=== PATIENT | female | born 1935 | race Caucasian/White ===

== ENCOUNTER 2017-09-03 11:15 | Emergency (ER) | payer MEDICARE, BC ==
[2017-09-03] MEDS ORDERED: Acetaminophen 325 MG TAB ONE (12:16)
--- NOTE | 2017-09-03 12:25 | CT ---
CT BRAIN WITHOUT CONTRAST: HISTORY: Pain. Fall. COMPARISON: None. FINDINGS: No acute territorial infarct or hemorrhage. No midline shift or mass effect. Moderate microvascula r ischemic changes. The calvarium is intact. The paranasal sinuses and mastoids are clear. The left orbital lens is radiolucent. IMPRESSION: Moderate microangiopathic changes without acute intracranial abnormality. POS: [facility]
[2017-09-03] MEDS ORDERED: Ondansetron ODT 4 MG TAB ONE (12:37)
--- NOTE | 2017-09-03 12:44 | CT ---
CT CERVICAL SPINE WITHOUT CONTRAST: HISTORY: Pain. Trauma. Fall. COMPARISON: None. FINDINGS: Bones are osteopenic. This limits evaluation for a nondisplaced fracture. The mastoids are clear. No displaced fracture of the cervical spine. Multilevel spondylosis. Moderate to severe emphysematous changes of lung apices, likely scarring in left lung apex. Dense vascular calcification of the aorta. Dense vascular calcifications of the great vessels. Thy roid is atrophic. IMPRESSION: 1. No acute fracture or malalignment of the cervical spine. 2. Extensive emphysema in lung apices with likely some peripherally calcified scarring left lung ap ex and less likely mass. Followup radiographs can be obtained. POS: [facility]
--- NOTE | 2017-09-03 12:49 | RAD ---
SACRUM AND COCCYX STANDARD: HISTORY: Pain. Fall. Trauma. COMPARISON: None. FINDINGS: SI joints appear to be preserved. Obturator rings appear to be preserved. No acute fracture is vis ualized. Sacrum and coccyx appear relatively intact. IMPRESSION: No acute displaced fracture. POS: [facility]
== END 2017-09-03 13:28 | disposition home or self-care (01) ==
LOC: ERS 11:15
DX: S30.0XXA Contusion of lower back and pelvis, initial encounter (principal); J44.9 Chronic obstructive pulmonary disease, unspecified; E78.5 Hyperlipidemia, unspecified; I10 Essential (primary) hypertension; F41.9 Anxiety disorder, unspecified; F32.9 Major depressive disorder, single episode, unspecified; Z85.118 Personal history of other malignant neoplasm of bronchus and lung; Z87.891 Personal history of nicotine dependence; Z79.899 Other long term (current) drug therapy; W18.30XA Fall on same level, unspecified, initial encounter
CPT/HCPCS: 70450; 72125; 72220; Q0162

== ENCOUNTER 2017-09-10 11:06 | Outpatient (CLI) | payer MEDICARE, BC ==
--- NOTE | 2017-09-10 15:55 | RAD ---
CHEST TWO VIEWS: Comparison: 03-13-17 History: Dyspnea. FINDINGS: Sternotomy wires and atherosclerosis are redemonstrated. Prostatic heart valve is redemonstrated. No rmal cardiac silhouette. The pulmonary vessels and hilum are normal. Costophrenic angles are clear. Hyperinflation with chronic changes. No consolidation or mass. No pneumothorax. Osteoarthritic onofre es are identified. IMPRESSION: 1. Atherosclerosis. 2. Hyperinflation. Chronic changes. POS: [facility]
== END 2017-09-10 11:07 | disposition home or self-care (01) ==
LOC: RAD 11:06
PROVIDERS: ATTEND Internal Medicine Critical Care Medicine
DX: R06.00 Dyspnea, unspecified (principal); I70.90 Unspecified atherosclerosis
CPT/HCPCS: 71020

== ENCOUNTER 2018-09-15 10:33 | Outpatient (CLI) | payer MEDICARE, BC ==
--- NOTE | 2018-09-15 11:52 | RAD ---
TWO VIEWS CHEST: Comparison: 09-10-17 History: Dyspnea. FINDINGS: Two views of the chest shows normal sized cardiomediastinal silhouette. The patient is status post ao rtic valve repair. There is no evidence of consolidation, mass, or pleural effusion. IMPRESSION: No evidence of acute cardiopulmonary disease. POS: [facility]
== END 2018-09-15 10:34 | disposition home or self-care (01) ==
LOC: RAD 10:33
PROVIDERS: ATTEND Internal Medicine Critical Care Medicine
DX: R06.00 Dyspnea, unspecified (principal)
CPT/HCPCS: 71046

== ENCOUNTER 2021-02-28 10:09 | Outpatient (CLI) | payer MEDICARE, BC | END 2021-02-28 10:10 | disposition home or self-care (01) | LOC: NM 10:09 | PROVIDERS: ATTEND Internal Medicine Critical Care Medicine | DX: I26.99 Other pulmonary embolism without acute cor pulmonale (principal); J44.9 Chronic obstructive pulmonary disease, unspecified | CPT/HCPCS: 71046; 78451; A9540 ==

== ENCOUNTER 2022-09-18 10:04 | Outpatient (CLI) | payer MEDICARE, BC | END 2022-09-18 10:05 | disposition home or self-care (01) | LOC: RAD 10:04 | PROVIDERS: ATTEND Internal Medicine Critical Care Medicine | DX: R06.00 Dyspnea, unspecified (principal); J44.9 Chronic obstructive pulmonary disease, unspecified | CPT/HCPCS: 71046 ==

== ENCOUNTER 2023-03-24 07:30 | Outpatient (CLI) | payer MEDICARE, BC | END 2023-03-24 07:31 | disposition home or self-care (01) | LOC: CT 07:30 | PROVIDERS: ATTEND Internal Medicine Critical Care Medicine | DX: C34.91 Malignant neoplasm of unspecified part of right bronchus or lung (principal); C34.11 Malignant neoplasm of upper lobe, right bronchus or lung; R91.1 Solitary pulmonary nodule; J43.9 Emphysema, unspecified | CPT/HCPCS: 71250 ==

== ENCOUNTER 2023-09-24 16:56 | Inpatient (IN) | payer MEDICARE, BC ==
[2023-09-24] MEDS ORDERED: Sodium Chloride 0.9% 100 ML ONE (18:09)
[2023-09-24] MEDS ORDERED: Azithromycin 500 MG VIAL ONE (18:09)
[2023-09-24] MEDS ORDERED: cefTRIAXone (ROCEPHIN) 1 GM VIAL ONE (18:09)
[2023-09-24] MEDS ORDERED: Sodium Chloride 0.9% 250 ML 250 ML ONE (18:10)
[2023-09-24 18:57] LABS: Actual Bicarbonate (HCO3v) 19.9 mEq/L (22-28); Analyzer IN Cardio ER; Calcium, Ionized (venous) 1.07 mmol/L (1.16-1.32); Chloride (VBG) 101 mmol/L (98-106); Hematocrit-VBG 38 % (36.0-47.0); Potassium (VBG) 3.52 mmol/L (3.70-5.30); Sodium 138 mmol/L (133-146); pH (venous) 7.354 (7.32-7.43)
[2023-09-24 19:00] LABS: #Monocytes 0.5 thou/uL (0.11-0.59); #Neutrophils 11.2 thou/uL (1.40-6.50); %Basophils 0.1 % (0.0-1.0); %Eosinophils 0.1 % (0.0-10.0); %Lymphocytes 2.8 % (21.0-51.0); %Monocytes 3.9 % (0.0-10.0); %Neutrophils 92.7 % (42.0-75.0); Hematocrit 39.3 % (36.0-47.0); Hemoglobin 12.2 g/dL (12.0-16.0); Mean Corpuscular Hemoglobin 30.7 pg (27.0-31.0); Mean Corpuscular Volume 98.7 fl (78.0-98.0); Mean Platelet Volume 10.6 fL (7.4-10.4); Platelet Count 187 10x3/uL (130-400); RBC Distribution Width 13.2 % (11.5-14.5); Red Blood Cell (RBC) Count 3.98 mill/uL (4.20-5.40)
[2023-09-24 19:26] LABS: ALT (SGPT) 16 U/L (8-55); AST (SGOT) 31 U/L (5-34); Albumin 4.6 g/dL (3.4-4.8); Alkaline Phosphatase 68 U/L (40-110); Anion Gap 17 mmol/L (10-20); BUN (Urea Nitrogen) 10 mg/dL (9.8-20.1); Calc. Creatinine Clearance 0 mL/min (70-130); Calcium 9.1 mg/dL (7.8-10.44); Carbon Dioxide 20 mmol/L (23-31); Chloride 103 mmol/L (98-107); Estimated GFR 75; Globulin 2.7 g/dL (2.4-3.5); Glucose 142 mg/dL (83-110); Lipase 18 U/L (8-78); Magnesium 2.8 mg/dL (1.6-2.6); Potassium 3.4 mmol/L (3.5-5.1); Protein, Total 7.3 g/dL (5.8-8.1); Sodium 137 mmol/L (136-145)
[2023-09-24 19:27] LABS: Bilirubin, Total 0.3 mg/dL (0.2-1.2)
[2023-09-24 19:50] LABS: Troponin I 0.433 ng/mL (< 0.028)
[2023-09-24] MEDS ORDERED: Aspirin Chewable 81 MG TAB ONE (20:02)
[2023-09-24] MEDS ORDERED: Potassium Chloride 20 MEQ TAB PO SCH (20:30)
[2023-09-24] MEDS ORDERED: Acetaminophen 325 MG TAB PO PRN (20:51)
[2023-09-24] MEDS ORDERED: Ondansetron ODT 4 MG TAB PO PRN (20:51)
[2023-09-24] MEDS ORDERED: Ondansetron PF 4 MG/2 ML Vial IVP PRN (20:51)
[2023-09-24] MEDS ORDERED: guaiFENesin ER 600 MG TAB PO SCH (21:00)
[2023-09-24] MEDS ORDERED: Ipratropium/Albuterol 3 ML NEB ONE (21:19)
[2023-09-24 21:35] LABS: Troponin I 1.184 ng/mL (< 0.028)
[2023-09-24] MEDS ORDERED: Heparin 25,000 units/D5W 500 ML ONE (21:44)
[2023-09-24 21:58] LABS: INR-International Normal Ratio 1.1; PTT 30.4 sec (22.9-36.1); Prothrombin Time 14.4 sec (12.0-14.7)
[2023-09-24] MEDS ORDERED: Ipratropium/Albuterol 3 ML NEB NEB SCH (22:00)
[2023-09-24] MEDS ORDERED: Heparin 10,000 UNITS/ 10 ML VIAL SLOW IVP SCH (22:00)
[2023-09-24] MEDS ORDERED: methylPREDNISolone Sod Succ 40 MG VIAL IVP SCH (23:59)
[2023-09-25 00:17] VITALS: BMI 17.4
[2023-09-25 00:41] LABS: Troponin I 1.686 ng/mL (< 0.028)
[2023-09-25] MEDS ORDERED: Heparin 25,000 units/D5W 500 ML IVPB SCH (00:45)
[2023-09-25] MEDS ORDERED: Ipratropium/Albuterol 3 ML NEB NEB SCH ×3 (01:00→07:00)
[2023-09-25 01:09] LABS: Hematocrit 39.4 % (36.0-47.0); Hemoglobin 12.8 g/dL (12.0-16.0); Platelet Count 233 10x3/uL (130-400)
[2023-09-25 01:55] LABS: SARS-CoV-2 NAA Rapid Test Not Detected (NotDetected)
[2023-09-25 04:36] LABS: #Monocytes 0.4 thou/uL (0.11-0.59); #Neutrophils 8.3 thou/uL (1.40-6.50); %Basophils 0.1 % (0.0-1.0); %Lymphocytes 3.1 % (21.0-51.0); %Monocytes 3.9 % (0.0-10.0); %Neutrophils 92.6 % (42.0-75.0); Hematocrit 38.2 % (36.0-47.0); Hemoglobin 12.5 g/dL (12.0-16.0); Mean Corpuscular HGB CONC 32.7 g/dL (32.0-36.0); Mean Corpuscular Hemoglobin 30.1 pg (27.0-31.0); Mean Platelet Volume 11.2 fL (7.4-10.4); Platelet Count 215 10x3/uL (130-400); RBC Distribution Width 13.6 % (11.5-14.5); Red Blood Cell (RBC) Count 4.15 mill/uL (4.20-5.40)
[2023-09-25 04:54] LABS: Anion Gap 17 mmol/L (10-20); BUN (Urea Nitrogen) 11 mg/dL (9.8-20.1); Calc. Creatinine Clearance 35 mL/min (70-130); Calcium 9.1 mg/dL (7.8-10.44); Carbon Dioxide 23 mmol/L (23-31); Chloride 101 mmol/L (98-107); Estimated GFR 80; Glucose 203 mg/dL (83-110); Magnesium 2.4 mg/dL (1.6-2.6); Potassium 4.4 mmol/L (3.5-5.1); Sodium 137 mmol/L (136-145)
[2023-09-25 04:56] LABS: Troponin I 2.754 ng/mL (< 0.028)
[2023-09-25] MEDS ORDERED: Mometasone 100 MCG/Formoterol 5 MCG 120 PUFF INHALER INH SCH (06:30)
[2023-09-25] MEDS ORDERED: Rocuronium Bromide 10 MG/ML (10ML VIAL) ONE (06:47)
[2023-09-25] MEDS ORDERED: Ipratropium/Albuterol 3 ML NEB NEB PRN (06:48)
[2023-09-25] MEDS ORDERED: Ventilator Sedation Protocol 1 EACH FS ONE (06:56)
[2023-09-25 06:58] VITALS: BP 96/64
[2023-09-25] MEDS ORDERED: Fentanyl CADD 100 ML IV SCH (07:00)
[2023-09-25] MEDS ORDERED: Lorazepam 2 MG/ML VIAL SLOW IVP PRN ×3 (07:00→10:25)
[2023-09-25] MEDS ORDERED: DISCONTINUE PREVIOUS NARCOTIC PAIN MEDICATIONS AND BENZODIAZEPINES FS SCH (07:00)
[2023-09-25] MEDS ORDERED: Propofol BOLUS 1,000 MG/100 ML VIAL IV PRN (07:00)
[2023-09-25] MEDS ORDERED: Morphine 2 MG/ML VIAL SLOW IVP PRN (07:00)
[2023-09-25] MEDS ORDERED: Fentanyl BOLUS 250 ML IVPB PRN (07:00)
[2023-09-25] MEDS ORDERED: Heparin 10,000 UNITS/ 10 ML VIAL SLOW IVP SCH (07:00)
[2023-09-25] MEDS ORDERED: Propofol 1,000 MG/100 ML VIAL IV PRN (07:00)
[2023-09-25] MEDS ORDERED: Rocuronium Bromide 10 MG/ML (10ML VIAL) IVP SCH (07:15)
[2023-09-25] MEDS ORDERED: Electrolyte Replacement Protocol 1 EACH FS ONE (07:18)
[2023-09-25] MEDS ORDERED: Dextrose 50% Abboject 50 ML SYRINGE SLOW IVP PRN (07:19)
[2023-09-25] MEDS ORDERED: Glucagon 1 MG/ML KIT IM PRN (07:19)
[2023-09-25] MEDS ORDERED: Dextrose 5% in Water 1,000 ML IV PRN (07:19)
[2023-09-25] MEDS ORDERED: HumaLOG 300 UNITS/3 ML VIAL SC PRN ×2 (07:19)
[2023-09-25 07:23] LABS: Lactic Acid 3.9 mmol/L (0.5-2.2)
[2023-09-25 07:25] LABS: #Monocytes 0.5 thou/uL (0.11-0.59); #Neutrophils 8.4 thou/uL (1.40-6.50); %Basophils 0.1 % (0.0-1.0); %Lymphocytes 8.8 % (21.0-51.0); %Monocytes 5.2 % (0.0-10.0); %Neutrophils 85.5 % (42.0-75.0); Hemoglobin 13.5 g/dL (12.0-16.0); Mean Corpuscular HGB CONC 32.1 g/dL (32.0-36.0); Mean Corpuscular Hemoglobin 30.5 pg (27.0-31.0); Mean Platelet Volume 11.4 fL (7.4-10.4); Platelet Count 241 10x3/uL (130-400); RBC Distribution Width 13.3 % (11.5-14.5); Red Blood Cell (RBC) Count 4.42 mill/uL (4.20-5.40); White Blood Cell (WBC) Count 9.9 10x3/uL (4.8-10.8)
[2023-09-25 07:39] LABS: Troponin I 4.193 ng/mL (< 0.028)
[2023-09-25] MEDS ORDERED: Electrolyte Replacement Protocol FS PRN (07:45)
[2023-09-25] MEDS ORDERED: methylPREDNISolone Sod Succ 40 MG VIAL IVP SCH (08:00)
[2023-09-25 08:03] LABS: CO2 Tension 43.2 mmHg (35.0-45.0); Calcium, Ionized (arterial) 1.13 mmol/L (1.12-1.30); Carboxyhemoglobin (COHb) 0.3 gm% (0.0-3.0); Hematocrit-ABG 37 % (36.0-47.0); Hemoglobin (Hb) 12.6 g/dL (12.0-16.0); O2 Tension (PaO2), arterial 243.9 mmHg (> 60.0); Potassium - ABG Lab 4.34 mmol/L (3.70-5.30); pH, Arterial 7.238 (7.35-7.45)
[2023-09-25 08:05] LABS: Puncture Site RBA
[2023-09-25 08:05] LABS: ALT (SGPT) 30 U/L (8-55); AST (SGOT) 69 U/L (5-34); Albumin 4.3 g/dL (3.4-4.8); Alkaline Phosphatase 67 U/L (40-110); Anion Gap 15 mmol/L (10-20); BUN (Urea Nitrogen) 13 mg/dL (9.8-20.1); Bilirubin, Total 0.5 mg/dL (0.2-1.2); Calc. Creatinine Clearance 27 mL/min (70-130); Calcium 8.6 mg/dL (7.8-10.44); Carbon Dioxide 27 mmol/L (23-31); Chloride 102 mmol/L (98-107); Estimated GFR 57; Globulin 2.6 g/dL (2.4-3.5); Glucose 265 mg/dL (83-110); Potassium 4.7 mmol/L (3.5-5.1); Protein, Total 6.9 g/dL (5.8-8.1); Sodium 139 mmol/L (136-145)
[2023-09-25] MEDS ORDERED: Pantoprazole 40 MG VIAL IVP SCH (09:00)
[2023-09-25] MEDS ORDERED: Oseltamivir 75 MG CAP PO SCH (09:00)
[2023-09-25] MEDS ORDERED: Morphine 4 MG/ML VIAL SLOW IVP PRN ×2 (09:44→10:22)
[2023-09-25 09:55] VITALS: TEMP 97.7
[2023-09-25] MEDS ORDERED: Doxycycline 100 MG in Sodium Chloride 0.9% 100 ML IVPB SCH (18:00)
[2023-09-25] MEDS ORDERED: cefTRIAXone\\ROCEPHIN 1 GM in Sodium Chloride 0.9% 100 ML IVPB SCH (18:00)
[2023-09-25] MEDS ORDERED: Oseltamivir 6 MG/ML ORAL SUSP PO SCH (21:00)
== END 2023-09-25 11:13 | disposition expired | DRG 208 ==
LOC: ERS 16:56 → 2NO 20:53 → CCU 09-25 06:51
PROVIDERS: ADMIT Physician Assistant; ATTEND Internal Medicine
PROC: 0DH67UZ Insertion of Feeding Device into Stomach, Via Natural or Artificial Opening (ICD-10-PCS; 2023-09-24)
PROC: 5A1935Z Respiratory Ventilation, Less than 24 Consecutive Hours (ICD-10-PCS; principal; 2023-09-25)
PROC: 0BH17EZ Insertion of Endotracheal Airway into Trachea, Via Natural or Artificial Opening (ICD-10-PCS; 2023-09-25)
PROC: 4A033R1 Measurement of Arterial Saturation, Peripheral, Percutaneous Approach (ICD-10-PCS; 2023-09-25)
DX: J10.00 Influenza due to other identified influenza virus with unspecified type of pneumonia (principal); J96.01 Acute respiratory failure with hypoxia; I21.A1 Myocardial infarction type 2; Z51.5 Encounter for palliative care; Z66 Do not resuscitate; G93.41 Metabolic encephalopathy; J44.1 Chronic obstructive pulmonary disease with (acute) exacerbation; I10 Essential (primary) hypertension; E78.5 Hyperlipidemia, unspecified; I25.10 Atherosclerotic heart disease of native coronary artery without angina pectoris; E87.6 Hypokalemia; E83.41 Hypermagnesemia; F41.9 Anxiety disorder, unspecified; F32.A Depression, unspecified; I73.9 Peripheral vascular disease, unspecified; M79.7 Fibromyalgia; J43.9 Emphysema, unspecified; Z95.1 Presence of aortocoronary bypass graft; Z86.711 Personal history of pulmonary embolism; Z90.710 Acquired absence of both cervix and uterus; Z90.2 Acquired absence of lung [part of]; Z85.118 Personal history of other malignant neoplasm of bronchus and lung; Z87.891 Personal history of nicotine dependence; Z95.2 Presence of prosthetic heart valve; Z79.899 Other long term (current) drug therapy; Z79.51 Long term (current) use of inhaled steroids; Z90.49 Acquired absence of other specified parts of digestive tract; Z11.52 Encounter for screening for COVID-19
CPT/HCPCS: 36415; 36416; 36600; 71045; 71275; 80048; 80053; 82805; 83605; 83690; 83735; 83880; 84484; 85025; 85379; 85610; 85730; 93005; 93010; 94002; 94640; 94760; J0456; J0696; J1644; J2270; J2920; J3010; J3490; J7050; J7611; J7620